=== PATIENT | female | born 1955 | race African-American/Black ===

== ENCOUNTER 2016-11-12 09:43 | Inpatient (IN) | payer MEDICARE, MEDICAID ==
[~2016-11-12] VITALS: Ht 170.2 cm; Wt 116.6 kg
[~2016-11-12 09:43] MED LIST: ASPI325T2 PO; BREO INH; CETI-101 PO; CLON0.5T4 PO; DEXL60CA3 PO; EDARBI PO; EZET10TA PO; FERR-63 PO; GABA-529 PO; GLIM1TAB2 PO; INSU100C11 SQ; METF10002 PO; MULT-1146 PO; OXYC10TA48 PO; PLAVIX PO; POTA10TA15 PO; SIMV20TA6 PO; SITA100T6 PO
[2016-11-12] MEDS ORDERED: PREDNISONE 20MG TABLET PO ONE (11:30)
[2016-11-12] MEDS ORDERED: IPRATROPIUM/ALBUTEROL 0.5-3(2.5)MG/3ML NEB HHN ONE (11:30)
[2016-11-12] MEDS ORDERED: ACETAMINOPHEN 325MG TABLET PO ONE (11:30)
[2016-11-12 12:13] LABS: BASOPHILS % 0.8 % (0.0-2.0); EOSINOPHILS % 0.6 % (0.0-5.0); HEMATOCRIT. 34.2 % (36.0-48.0); HEMOGLOBIN. 11.1 g/dL (12.0-16.0); LYMPHOCYTES % 21.5 % (20.0-50.0); MEAN CORPUSCULAR HEMOGLOBIN 29.3 pg (28.0-32.0); MEAN CORPUSCULAR HGB CONC 32.4 g/dL (31.0-37.0); MEAN CORPUSCULAR VOLUME 90.5 fL (81.0-99.0); MEAN PLATELET VOLUME 9.3 fl (7.4-10.4); MONOCYTES % 5.4 % (2.0-8.0); NEUTROPHILS % 71.7 % (40.0-76.0); PLATELET 360 x1000/uL (130-400); RED BLOOD CELL COUNT 3.78 mill/uL (4.2-5.4); RED CELL DISTRIBUTION WIDTH 14.8 % (11.6-14.6); WHITE BLOOD COUNT 11.6 x1000/uL (4.5-11.0)
[2016-11-12 12:19] LABS: PROTHROMBIN TIME 10.2 sec
[2016-11-12 12:24] LABS: ALANINE AMINOTRANSFERASE 15 IU/L (13-61); ALBUMIN 3.4 g/dL (3.4-5.0); ANION GAP 12; CALCIUM 9.2 mg/dL (8.5-10.1); CARBON DIOXIDE 26 mEq/L (21-32); CHLORIDE 107 mEq/L (98-107); INDEX HEMOLYSI 1 (1-3); INDEX ICTERIC 1 (1-4); INDEX LIPEMIC 1 (1-3); LIPASE 127 IU/L (73-393); UREA NITROGEN BLOOD 14 mg/dL (7-21); eGFR > 60 mL/min (>60)
[2016-11-12 12:27] LABS: TROPONIN I < 0.02 ng/mL (0.00-0.04)
[2016-11-12 12:29] LABS: LACTIC ACID 3.2 mmol/L (0.4-2.0)
[2016-11-12] MEDS ORDERED: SODIUM CHLORIDE 0.9% 1000ML BAG (SEPSIS BOLUS) IV ONE (12:45)
[2016-11-12] MEDS ORDERED: LEVOFLOXACIN 500MG PREMIX 100 ML IV ONE (13:00)
[2016-11-12] MEDS ORDERED: SODIUM CHLORIDE 0.9% 10ML VIAL ONE (14:17)
[2016-11-12] MEDS ORDERED: IOHEXOL-350 100 ML BOTTLE ONE (14:17)
[2016-11-12] MEDS ORDERED: CLONIDINE 0.1MG TABLET PO PRN (17:15)
[2016-11-12] MEDS ORDERED: AMLODIPINE 2.5MG TABLET PO NR (18:00)
[2016-11-12] MEDS: AMLODIPINE 2.5MG TABLET PO SCH (21:45)
[2016-11-12 21:55] VITALS: BP 134/71
[2016-11-12 22:00] VITALS: BP 134/71
[2016-11-13] VITALS: BP 118/73
[2016-11-13] MEDS ORDERED: DEXTROSE 50% WATER 50ML SYRINGE IV PRN (01:00)
[2016-11-13] MEDS ORDERED: CLONAZEPAM 0.5MG TABLET PO PRN (01:00)
[2016-11-13] MEDS ORDERED: ALBUTEROL (0.5%) 2.5MG/0.5ML NEB HHN ONE (01:00)
[2016-11-13] MEDS ORDERED: OXYBUTYNIN CHLORIDE 5MG TABLET PO NR (02:11)
[2016-11-13 04:00] VITALS: BP 116/63
[2016-11-13 07:12] LABS: CHLORIDE 107 mEq/L (98-107); INDEX HEMOLYSI 1 (1-3); INDEX ICTERIC 1 (1-4); INDEX LIPEMIC 1 (1-3)
[2016-11-13 07:23] LABS: ALANINE AMINOTRANSFERASE 14 IU/L (13-61); ALBUMIN 3.2 g/dL (3.4-5.0); ANION GAP 11; CALCIUM 9.2 mg/dL (8.5-10.1); CARBON DIOXIDE 27 mEq/L (21-32); CREATINE KINASE 54 IU/L (26-192); CREATINE KINASE MB FRACTION < 0.5 ng/mL (0.5-3.6); HDL CHOLESTEROL 78 mg/dL (40-59); LDL CHOLESTEROL 54 mg/dL (5-100); MAGNESIUM 1.8 mg/dL (1.8-2.4); NT PRO B-TYPE NATRIURETIC PEP 178 pg/mL (5-125); TRIGLYCERIDE 38 mg/dL (0-150); TROPONIN I < 0.02 ng/mL (0.00-0.04); UREA NITROGEN BLOOD 12 mg/dL (7-21); eGFR > 60 mL/min (>60)
[2016-11-13] MEDS: BLOOD SUGAR DIAGNOSTIC STRIP TEST SCH ×4 (07:50→21:46)
[2016-11-13] MEDS: GABAPENTIN 100MG CAPSULE PO SCH ×3 (07:50→21:46)
[2016-11-13] MEDS: INSULIN LISPRO 100 UNITS/ML SUBCUT SCH ×4 (07:50→21:00)
[2016-11-13 08:00] VITALS: BP 124/69
[2016-11-13] MEDS: OXYBUTYNIN CHLORIDE 5MG TABLET PO SCH (08:55)
[2016-11-13] MEDS: OMEPRAZOLE 20MG CAPSULE EXTENDED RELEASE PO SCH ×2 (08:55→21:46)
[2016-11-13] MEDS: AMLODIPINE 2.5MG TABLET PO SCH ×2 (08:56→21:45)
[2016-11-13] MEDS: FERROUS SULFATE 325MG TABLET PO SCH ×2 (08:56→17:57)
[2016-11-13] MEDS: LINAGLIPTIN 5MG TABLET PO SCH (08:56)
[2016-11-13] MEDS: CLOPIDOGREL 75MG TABLET PO SCH (08:56)
[2016-11-13] MEDS: LOSARTAN POTASSIUM 50 MG TABLET PO SCH (08:56)
[2016-11-13] MEDS: MULTIVITAMINS,THER W-MINERALS TABLET PO SCH (08:57)
[2016-11-13] MEDS: ASPIRIN 325MG EC TABLET PO SCH (08:57)
[2016-11-13] MEDS: CETIRIZINE 10MG TABLET PO SCH (08:57)
[2016-11-13] MEDS: METFORMIN HCL 500MG TABLET PO SCH ×2 (08:57→17:57)
[2016-11-13] MEDS: ENOXAPARIN 30MG/0.3ML SYR SUBCUT SCH ×2 (08:57→21:48)
[2016-11-13] MEDS ORDERED: ASPIRIN 325MG EC TABLET PO SCH (09:00)
[2016-11-13] MEDS: POTASSIUM CHLORIDE 10MEQ TABLET SR PO SCH (09:05)
[2016-11-13] MEDS: EZETIMIBE 10MG TABLET PO SCH (09:08)
[2016-11-13 12:00] VITALS: BP 110/60
[2016-11-13] MEDS: FLUTICASONE/VILANTEROL 200-25 BLST.W.DEV ORI SCH (12:59)
[2016-11-13] MEDS: UMECLIDINIUM BROMIDE 1 INH BLST.W.DEV IH SCH (12:59)
[2016-11-13 16:00] VITALS: BP 107/61
[2016-11-13] MEDS ORDERED: ALBUTEROL (0.083%) 2.5MG/3ML NEB HHN PRN (19:45)
[2016-11-13 20:00] VITALS: BP 135/78
[2016-11-13] MEDS ORDERED: INSULIN DETEMIR UD 100 UNITS/ML SYR SUBCUT SCH (21:00)
[2016-11-13] MEDS: INSULIN DETEMIR UD 100 UNITS/ML SYR SUBCUT SCH (21:44)
[2016-11-13] MEDS: ATORVASTATIN CALCIUM 20MG TABLET PO SCH (21:46)
[2016-11-13] MEDS: PREDNISONE 20MG TABLET PO SCH (21:56)
[2016-11-14] VITALS: BP 137/70
[2016-11-14 04:00] VITALS: BP 159/80
[2016-11-14] MEDS: GABAPENTIN 100MG CAPSULE PO SCH ×3 (06:18→22:00)
[2016-11-14] MEDS: OMEPRAZOLE 20MG CAPSULE EXTENDED RELEASE PO SCH ×2 (06:18→22:00)
[2016-11-14] MEDS: BLOOD SUGAR DIAGNOSTIC STRIP TEST SCH ×4 (06:22→21:00)
[2016-11-14 08:00] VITALS: BP 135/65
[2016-11-14] MEDS: METFORMIN HCL 500MG TABLET PO SCH ×2 (08:49→17:53)
[2016-11-14] MEDS: INSULIN LISPRO 100 UNITS/ML SUBCUT SCH ×4 (08:51→22:05)
[2016-11-14] MEDS: FLUTICASONE/VILANTEROL 200-25 BLST.W.DEV ORI SCH (08:53)
[2016-11-14] MEDS: UMECLIDINIUM BROMIDE 1 INH BLST.W.DEV IH SCH (08:55)
[2016-11-14] MEDS: LOSARTAN POTASSIUM 50 MG TABLET PO SCH (08:57)
[2016-11-14] MEDS: OXYBUTYNIN CHLORIDE 5MG TABLET PO SCH (08:58)
[2016-11-14] MEDS: POTASSIUM CHLORIDE 10MEQ TABLET SR PO SCH (08:59)
[2016-11-14] MEDS: AMLODIPINE 2.5MG TABLET PO SCH ×2 (08:59→22:00)
[2016-11-14] MEDS: ASPIRIN 325MG EC TABLET PO SCH (08:59)
[2016-11-14] MEDS: FERROUS SULFATE 325MG TABLET PO SCH ×2 (08:59→17:52)
[2016-11-14] MEDS: CLOPIDOGREL 75MG TABLET PO SCH (08:59)
[2016-11-14] MEDS: PREDNISONE 20MG TABLET PO SCH (09:00)
[2016-11-14] MEDS: EZETIMIBE 10MG TABLET PO SCH (09:00)
[2016-11-14] MEDS: MULTIVITAMINS,THER W-MINERALS TABLET PO SCH (09:00)
[2016-11-14] MEDS: CETIRIZINE 10MG TABLET PO SCH (09:01)
[2016-11-14] MEDS: LINAGLIPTIN 5MG TABLET PO SCH (09:01)
[2016-11-14] MEDS: ENOXAPARIN 30MG/0.3ML SYR SUBCUT SCH ×2 (09:02→22:00)
[2016-11-14 09:29] LABS: BASOPHILS % 0.4 % (0.0-2.0); HEMATOCRIT. 36.1 % (36.0-48.0); HEMOGLOBIN. 11.7 g/dL (12.0-16.0); LYMPHOCYTES % 9.2 % (20.0-50.0); MEAN CORPUSCULAR HEMOGLOBIN 29.2 pg (28.0-32.0); MEAN CORPUSCULAR HGB CONC 32.4 g/dL (31.0-37.0); MEAN PLATELET VOLUME 9.4 fl (7.4-10.4); MONOCYTES % 1.2 % (2.0-8.0); NEUTROPHILS % 89.2 % (40.0-76.0); PLATELET 388 x1000/uL (130-400)
[2016-11-14 09:39] LABS: ALANINE AMINOTRANSFERASE 14 IU/L (13-61); ALBUMIN 3.6 g/dL (3.4-5.0); ANION GAP 14; CALCIUM 9.9 mg/dL (8.5-10.1); CARBON DIOXIDE 26 mEq/L (21-32); CHLORIDE 102 mEq/L (98-107); INDEX HEMOLYSI 1 (1-3); INDEX ICTERIC 1 (1-4); INDEX LIPEMIC 1 (1-3); TROPONIN I < 0.02 ng/mL (0.00-0.04); UREA NITROGEN BLOOD 15 mg/dL (7-21); eGFR > 60 mL/min (>60)
[2016-11-14] MEDS: LEVOFLOXACIN 500MG TABLET PO SCH (10:56)
[2016-11-14 12:47] VITALS: BP 128/70
[2016-11-14] MEDS: LEVOTHYROXINE SODIUM 100MCG TABLET PO SCH (12:48)
[2016-11-14 16:28] VITALS: BP 118/75
[2016-11-14 20:00] VITALS: BP 122/77
[2016-11-14] MEDS: ATORVASTATIN CALCIUM 20MG TABLET PO SCH (22:00)
[2016-11-14] MEDS: INSULIN DETEMIR UD 100 UNITS/ML SYR SUBCUT SCH (22:06)
[2016-11-15] VITALS (7 sets, daily range): BP systolic 102–139; BP diastolic 56–85
[2016-11-15] MEDS: LEVOTHYROXINE SODIUM 100MCG TABLET PO SCH (06:34)
[2016-11-15] MEDS: OMEPRAZOLE 20MG CAPSULE EXTENDED RELEASE PO SCH (06:34)
[2016-11-15] MEDS: GABAPENTIN 100MG CAPSULE PO SCH ×2 (06:34→13:52)
[2016-11-15] MEDS: BLOOD SUGAR DIAGNOSTIC STRIP TEST SCH ×3 (06:36→16:41)
[2016-11-15] MEDS: METFORMIN HCL 500MG TABLET PO SCH ×2 (07:31→17:00)
[2016-11-15] MEDS: INSULIN LISPRO 100 UNITS/ML SUBCUT SCH ×3 (07:50→17:02)
[2016-11-15] MEDS: MULTIVITAMINS,THER W-MINERALS TABLET PO SCH (08:45)
[2016-11-15] MEDS: ASPIRIN 325MG EC TABLET PO SCH (08:45)
[2016-11-15] MEDS: LINAGLIPTIN 5MG TABLET PO SCH (08:45)
[2016-11-15] MEDS: EZETIMIBE 10MG TABLET PO SCH (08:46)
[2016-11-15] MEDS: POTASSIUM CHLORIDE 10MEQ TABLET SR PO SCH (08:46)
[2016-11-15] MEDS: CETIRIZINE 10MG TABLET PO SCH (08:47)
[2016-11-15] MEDS: OXYBUTYNIN CHLORIDE 5MG TABLET PO SCH (08:47)
[2016-11-15] MEDS: CLOPIDOGREL 75MG TABLET PO SCH (08:47)
[2016-11-15] MEDS: FERROUS SULFATE 325MG TABLET PO SCH ×2 (08:48→16:39)
[2016-11-15] MEDS: ENOXAPARIN 30MG/0.3ML SYR SUBCUT SCH (08:48)
[2016-11-15] MEDS: LOSARTAN POTASSIUM 50 MG TABLET PO SCH (08:48)
[2016-11-15] MEDS: AMLODIPINE 2.5MG TABLET PO SCH (08:49)
[2016-11-15] MEDS: UMECLIDINIUM BROMIDE 1 INH BLST.W.DEV IH SCH (08:54)
[2016-11-15] MEDS: FLUTICASONE/VILANTEROL 200-25 BLST.W.DEV ORI SCH (08:55)
[2016-11-15] MEDS: PREDNISONE 20MG TABLET PO SCH (08:58)
[2016-11-15] MEDS: LEVOFLOXACIN 500MG TABLET PO SCH (10:24)
[2016-11-16] MEDS ORDERED: ASPIRIN 81MG EC TABLET PO SCH (09:00)
== END 2016-11-15 20:40 | disposition home or self-care (01) | DRG 189 ==
LOC: ER 10:37 → 6EST 12:57
PROVIDERS: ADMIT Internal Medicine Pulmonary Disease; ATTEND Internal Medicine Pulmonary Disease
DX: J96.01 Acute respiratory failure with hypoxia (principal); J18.9 Pneumonia, unspecified organism; J45.901 Unspecified asthma with (acute) exacerbation; J44.0 Chronic obstructive pulmonary disease with (acute) lower respiratory infection; J98.11 Atelectasis; J44.1 Chronic obstructive pulmonary disease with (acute) exacerbation; Z68.41 Body mass index [BMI] 40.0-44.9, adult; I25.10 Atherosclerotic heart disease of native coronary artery without angina pectoris; E66.01 Morbid (severe) obesity due to excess calories; E78.5 Hyperlipidemia, unspecified; E89.0 Postprocedural hypothyroidism; I11.9 Hypertensive heart disease without heart failure; E78.00 Pure hypercholesterolemia, unspecified; E04.2 Nontoxic multinodular goiter; E11.65 Type 2 diabetes mellitus with hyperglycemia; Z95.5 Presence of coronary angioplasty implant and graft; Z87.891 Personal history of nicotine dependence; Z83.3 Family history of diabetes mellitus; Z82.49 Family history of ischemic heart disease and other diseases of the circulatory system; Z79.84 Long term (current) use of oral hypoglycemic drugs; Z79.899 Other long term (current) drug therapy; Z79.82 Long term (current) use of aspirin; Z90.49 Acquired absence of other specified parts of digestive tract; Z84.1 Family history of disorders of kidney and ureter; Z83.79 Family history of other diseases of the digestive system
CPT/HCPCS: 36415; 70490; 71010; 71275; 80053; 80061; 82550; 82553; 82962; 83605; 83690; 83735; 83880; 84484; 85025; 85379; 85610; 87040; 93005; 93970; 94640; 94664; 94760; 96365; 97162; 99285; A4216; J1650; J1815; J1956; J7030; J7512; J7611; J7620; Q9967

== ENCOUNTER 2017-03-03 08:50 | Emergency (ER) | payer MEDICARE, MEDICAID ==
[~2017-03-03] VITALS: Ht 170.2 cm; Wt 116.0 kg
[~2017-03-03 08:50] MED LIST changes: +ACET-2178 PO; +ASPI-986 PO; -ASPI325T2 PO; -EZET10TA PO; +SITA100T11 PO; -SITA100T6 PO; +ZET10 PO
[2017-03-03] MEDS ORDERED: METHYLPREDNISOLONE SOD SUCC 125 MG/2 ML VIAL IV STA (10:00)
[2017-03-03] MEDS ORDERED: IPRATROPIUM/ALBUTEROL 0.5-3(2.5)MG/3ML NEB HHN ONE (10:00)
[2017-03-03 10:42] LABS: EOSINOPHILS % 0.8 % (0.0-5.0); HEMATOCRIT. 34.3 % (36.0-48.0); HEMOGLOBIN. 11.3 g/dL (12.0-16.0); LYMPHOCYTES % 24.7 % (20.0-50.0); MEAN CORPUSCULAR HEMOGLOBIN 29.4 pg (28.0-32.0); MEAN CORPUSCULAR VOLUME 89.1 fL (81.0-99.0); MEAN PLATELET VOLUME 9.2 fl (7.4-10.4); MONOCYTES % 5.6 % (2.0-8.0); NEUTROPHILS % 67.9 % (40.0-76.0); PLATELET 360 x1000/uL (130-400); RED BLOOD CELL COUNT 3.85 mill/uL (4.2-5.4); RED CELL DISTRIBUTION WIDTH 15.2 % (11.6-14.6)
[2017-03-03 10:50] LABS: D-DIMER 0.6 mg/L FEU (<0.50); PARTIAL THROMBOPLASTIN TIME 21.3 sec (23.4-31.0); PROTHROMBIN TIME 10.4 sec (9.4-11.6)
[2017-03-03 10:53] LABS: CARBON DIOXIDE 23 mEq/L (21-32); CHLORIDE 107 mEq/L (98-107)
[2017-03-03 10:55] LABS: CLARITY URINE CLEAR (CLEAR); COLOR URINE YELLOW (YELLOW); GLUCOSE URINE NEGATIVE (NEGATIVE); KETONES URINE NEGATIVE (NEGATIVE); LEUKOCYTE ESTERASE URINE NEGATIVE (NEGATIVE); NITRITE URINE NEGATIVE (NEGATIVE); OCCULT BLOOD URINE NEGATIVE (NEGATIVE); PROTEIN URINE NEGATIVE (NEGATIVE); SPECIFIC GRAVITY URINE 1.009 (1.005-1.030); UROBILINOGEN URINE 0.2 E.U./dL (0.2-1.0)
[2017-03-03 10:57] LABS: TROPONIN I < 0.02 ng/mL (0.00-0.04)
[2017-03-03 13:40] VITALS: BP 138/70
== END 2017-03-03 13:57 | disposition home or self-care (01) ==
LOC: ER 10:47
DX: R06.02 Shortness of breath (principal); J44.9 Chronic obstructive pulmonary disease, unspecified; I25.10 Atherosclerotic heart disease of native coronary artery without angina pectoris; I10 Essential (primary) hypertension; I51.7 Cardiomegaly; J98.11 Atelectasis; J45.909 Unspecified asthma, uncomplicated; Z79.4 Long term (current) use of insulin; I25.2 Old myocardial infarction; Z79.82 Long term (current) use of aspirin; Z90.49 Acquired absence of other specified parts of digestive tract; E11.9 Type 2 diabetes mellitus without complications
CPT/HCPCS: 36415; 71010; 80053; 81001; 81003; 82010; 82150; 82962; 83605; 83690; 83880; 84484; 85025; 85379; 85610; 85730; 87040; 93005; 94640; 96360; 96374; 99285; J1815; J2930; J7030; 96372; J7620

== ENCOUNTER 2017-03-03 18:51 | Emergency (ER) | payer MEDICARE, MEDICAID ==
[~2017-03-03] VITALS: Ht 172.7 cm; Wt 114.0 kg
[2017-03-03] MEDS ORDERED: SODIUM CHLORIDE 0.9% 1,000 ML IV ONE (19:47)
[2017-03-03 20:22] LABS: HEMATOCRIT. 33.7 % (36.0-48.0); HEMOGLOBIN. 11.1 g/dL (12.0-16.0); MEAN CORPUSCULAR HEMOGLOBIN 29.4 pg (28.0-32.0); MEAN CORPUSCULAR VOLUME 89.5 fL (81.0-99.0); MEAN PLATELET VOLUME 9.2 fl (7.4-10.4); PLATELET 367 x1000/uL (130-400); RED BLOOD CELL COUNT 3.76 mill/uL (4.2-5.4); RED CELL DISTRIBUTION WIDTH 14.9 % (11.6-14.6)
[2017-03-03 20:35] LABS: AMYLASE 40 IU/L (25-115); BETA HYDROXYBUTYRATE 0.3 mMol/L (0.0-0.3); CARBON DIOXIDE 19 mEq/L (21-32); CHLORIDE 104 mEq/L (98-107); TROPONIN I < 0.02 ng/mL (0.00-0.04)
[2017-03-03] MEDS ORDERED: IPRATROPIUM/ALBUTEROL 0.5-3(2.5)MG/3ML NEB HHN ONE (21:30)
[2017-03-03 21:39] LABS: PLATELET ESTIMATE NORMAL
[2017-03-03 21:50] LABS: GLUCOSE URINE 3+ (NEGATIVE); KETONES URINE 2+ (NEGATIVE); LEUKOCYTE ESTERASE URINE NEGATIVE (NEGATIVE); NITRITE URINE NEGATIVE (NEGATIVE); OCCULT BLOOD URINE NEGATIVE (NEGATIVE); PH URINE 5.5 (4.5-8.0); PROTEIN URINE NEGATIVE (NEGATIVE); SPECIFIC GRAVITY URINE 1.026 (1.005-1.030)
[2017-03-03 21:53] LABS: CLARITY URINE HAZY (CLEAR); COLOR URINE YELLOW (YELLOW)
[2017-03-03] MEDS ORDERED: INSULIN REGULAR (HUMULIN R) 300UNITS/3ML SUBCUT ONE (22:00)
[2017-03-03 22:55] VITALS: BP 141/78
== END 2017-03-03 23:51 | disposition home or self-care (01) ==
LOC: ER 20:21
DX: E11.65 Type 2 diabetes mellitus with hyperglycemia (principal); R06.2 Wheezing; J44.9 Chronic obstructive pulmonary disease, unspecified; I10 Essential (primary) hypertension; I25.2 Old myocardial infarction; J45.909 Unspecified asthma, uncomplicated; E78.00 Pure hypercholesterolemia, unspecified; R00.0 Tachycardia, unspecified; D64.9 Anemia, unspecified; Z87.891 Personal history of nicotine dependence; Z79.82 Long term (current) use of aspirin; Z95.5 Presence of coronary angioplasty implant and graft; Z79.4 Long term (current) use of insulin
CPT/HCPCS: 36415; 80053; 81001; 82010; 82150; 82962; 83690; 84484; 85025; 93005; 94640; 96360; 96372; 99285; J1815; J7030; J7620

== ENCOUNTER → 2017-03-07 | Outpatient (CLI) | payer MEDICARE, MEDICAID ==
[~2017-03-07] MED LIST changes: +OXYB5TAB11 PO; +POLY250017 MC
== END | disposition home or self-care (01) ==
LOC: MAMMO 10:06
PROVIDERS: ATTEND Specialist
DX: Z12.31 Encounter for screening mammogram for malignant neoplasm of breast (principal)
CPT/HCPCS: G0202

== ENCOUNTER 2017-05-19 05:39 | Inpatient (IN) | payer MEDICARE, MEDICAID ==
[~2017-05-19] VITALS: Ht 170.2 cm; Wt 129.7 kg
[~2017-05-19 05:39] MED LIST changes: -OXYB5TAB11 PO; -POLY250017 MC
[2017-05-19] MEDS ORDERED: MORPHINE SULFATE 4 MG/ML CPJ (NOT FOR IM USE) IV STA (07:29)
[2017-05-19] MEDS ORDERED: ASPIRIN 81MG TABLET PO STA (07:29)
[2017-05-19] MEDS ORDERED: NITROGLYCERIN OINT 1GM/INCH UDPKT TD STA (07:29)
[2017-05-19] MEDS ORDERED: ONDANSETRON HCL 4MG/2ML VIAL IV STA (07:29)
[2017-05-19 07:55] LABS: BASOPHILS % 0.5 % (0.0-2.0); EOSINOPHILS % 0.7 % (0.0-5.0); HEMATOCRIT. 35.3 % (36.0-48.0); HEMOGLOBIN. 11.7 g/dL (12.0-16.0); LYMPHOCYTES % 20.8 % (20.0-50.0); MEAN CORPUSCULAR HEMOGLOBIN 30.1 pg (28.0-32.0); MEAN CORPUSCULAR VOLUME 90.7 fL (81.0-99.0); MONOCYTES % 5.2 % (2.0-8.0); NEUTROPHILS % 72.8 % (40.0-76.0); PLATELET 319 x1000/uL (130-400); RED CELL DISTRIBUTION WIDTH 15.1 % (11.6-14.6)
[2017-05-19 08:02] LABS: PARTIAL THROMBOPLASTIN TIME 25.9 sec (23.4-31.0); PROTHROMBIN TIME 10.6 sec (9.4-11.6)
[2017-05-19 08:13] LABS: CARBON DIOXIDE 26 mEq/L (21-32); CHLORIDE 106 mEq/L (98-107); TROPONIN I < 0.02 ng/mL (0.00-0.04)
[2017-05-19] MEDS ORDERED: IPRATROPIUM/ALBUTEROL 0.5-3(2.5)MG/3ML NEB HHN ONE (10:30)
[2017-05-19] MEDS ORDERED: METHYLPREDNISOLONE SOD SUCC 125 MG/2 ML VIAL IV ONE (10:30)
[2017-05-19] MEDS ORDERED: CEFTRIAXONE 1 G PREMIX 50 ML IV ONE (11:00)
[2017-05-19] MEDS ORDERED: AZITHROMYCIN 500 MG in DEXT 5% WATER 250 ML IV SCH (11:00)
[2017-05-19 13:40] VITALS: BP 110/65
[2017-05-19] MEDS ORDERED: OXYB5TAB11 PO (15:08)
[2017-05-19] MEDS ORDERED: POLY250017 MC (15:08)
[2017-05-19 16:00] VITALS: BP_SYST 114; BP_SYST 121; BP_DIAS 41; BP_DIAS 69
[2017-05-19] MEDS ORDERED: DEXTROSE 50% WATER 50ML SYRINGE IV PRN (16:45)
[2017-05-19] MEDS: BLOOD SUGAR DIAGNOSTIC STRIP TEST SCH ×2 (17:13→21:30)
[2017-05-19] MEDS ORDERED: ACETAMINOPHEN 325MG TABLET PO PRN (17:30)
[2017-05-19] MEDS: INSULIN LISPRO 100 UNITS/ML SUBCUT SCH ×2 (17:30→21:37)
[2017-05-19] MEDS: GABAPENTIN 100MG CAPSULE PO SCH (18:03)
[2017-05-19] MEDS: METFORMIN HCL 500MG TABLET PO SCH (18:16)
[2017-05-19 20:00] VITALS: BP 117/47
[2017-05-19] MEDS: IPRATROPIUM/ALBUTEROL 0.5-3(2.5)MG/3ML NEB HHN SCH (20:22)
[2017-05-19] MEDS: CLONAZEPAM 0.5MG TABLET PO SCH (21:35)
[2017-05-19] MEDS: METHYLPREDNISOLONE SOD SUCC 40 MG/ML VIAL IV SCH (21:35)
[2017-05-19] MEDS ORDERED: INSULIN DETEMIR UD 100 UNITS/ML SYR SUBCUT SCH (22:00)
[2017-05-20] VITALS: BP 115/65
[2017-05-20] MEDS: IPRATROPIUM/ALBUTEROL 0.5-3(2.5)MG/3ML NEB HHN SCH ×6 (00:15→21:00)
[2017-05-20 04:00] VITALS: BP 108/69
[2017-05-20] MEDS: METHYLPREDNISOLONE SOD SUCC 40 MG/ML VIAL IV SCH ×2 (05:25→17:41)
[2017-05-20] MEDS: BLOOD SUGAR DIAGNOSTIC STRIP TEST SCH ×4 (05:25→21:03)
[2017-05-20 07:35] LABS: BASOPHILS % 0.1 % (0.0-2.0); HEMATOCRIT. 32.7 % (36.0-48.0); HEMOGLOBIN. 10.8 g/dL (12.0-16.0); LYMPHOCYTES % 10.6 % (20.0-50.0); MEAN CORPUSCULAR HEMOGLOBIN 30.2 pg (28.0-32.0); MEAN CORPUSCULAR VOLUME 91.2 fL (81.0-99.0); MEAN PLATELET VOLUME 9.7 fl (7.4-10.4); MONOCYTES % 3.2 % (2.0-8.0); NEUTROPHILS % 86.1 % (40.0-76.0); PLATELET 303 x1000/uL (130-400); RED BLOOD CELL COUNT 3.59 mill/uL (4.2-5.4); RED CELL DISTRIBUTION WIDTH 14.7 % (11.6-14.6)
[2017-05-20] MEDS ORDERED: LEVOTHYROXINE SODIUM 100MCG TABLET PO SCH (07:40)
[2017-05-20 07:41] LABS: CARBON DIOXIDE 24 mEq/L (21-32); CHLORIDE 100 mEq/L (98-107); HDL CHOLESTEROL 68 mg/dL (40-59); LDL CHOLESTEROL 66 mg/dL (5-100); TOTAL IRON BINDING CAPACITY 296 ug/dL (250-450)
[2017-05-20 08:00] VITALS: BP 142/63
[2017-05-20] MEDS ORDERED: MEDICATION NOT ON FORMULARY EA (Sitagliptin Phosphate (Januvia) 100 MG) PO SCH (09:00)
[2017-05-20] MEDS ORDERED: BREO INH SCH (09:00)
[2017-05-20] MEDS ORDERED: MEDICATION NOT ON FORMULARY EA (Dexlansoprazole (Dexilant) 60 MG) PO SCH (09:00)
[2017-05-20] MEDS: METFORMIN HCL 500MG TABLET PO SCH ×2 (09:18→17:41)
[2017-05-20] MEDS: ASPIRIN 81MG TABLET PO SCH (09:18)
[2017-05-20] MEDS: GLIMEPIRIDE 1MG TABLET PO SCH (09:19)
[2017-05-20] MEDS: PANTOPRAZOLE 40MG DR TABLET PO SCH (09:19)
[2017-05-20] MEDS: GABAPENTIN 100MG CAPSULE PO SCH ×3 (09:19→17:44)
[2017-05-20] MEDS: LINAGLIPTIN 5MG TABLET PO SCH (09:20)
[2017-05-20] MEDS: OXYBUTYNIN CHLORIDE 5MG TABLET PO SCH (09:20)
[2017-05-20] MEDS: INSULIN LISPRO 100 UNITS/ML SUBCUT SCH ×4 (09:22→21:00)
[2017-05-20] MEDS: FLUTICASONE/VILANTEROL 200-25 BLST.W.DEV ORI SCH (09:24)
[2017-05-20] MEDS ORDERED: DEXTROSE 50% WATER 50ML SYRINGE IV PRN (10:45)
[2017-05-20 12:00] VITALS: BP 149/69
[2017-05-20] MEDS ORDERED: CEFTRIAXONE 1 G PREMIX 50 ML IV SCH (12:00)
[2017-05-20] MEDS ORDERED: BLOOD SUGAR DIAGNOSTIC STRIP TEST SCH (12:40)
[2017-05-20] MEDS ORDERED: AZITHROMYCIN 500 MG in DEXT 5% WATER 250 ML IV SCH (13:00)
[2017-05-20] MEDS: POLYETHYLENE GLYCOL 3350 (17GM) 1 DOSE PACK PO SCH (14:06)
[2017-05-20] MEDS: TRAMADOL 50MG TABLET PO PRN ×2 (14:07→21:07)
[2017-05-20] MEDS: ENOXAPARIN 40MG/0.4ML SYR SUBCUT SCH ×2 (14:09→21:06)
[2017-05-20 16:00] VITALS: BP 118/67
[2017-05-20 20:00] VITALS: BP 110/43
[2017-05-20] MEDS: CLONAZEPAM 0.5MG TABLET PO SCH (21:07)
[2017-05-20] MEDS ORDERED: INSULIN DETEMIR UD 100 UNITS/ML SYR SUBCUT SCH (22:00)
[2017-05-21] VITALS: BP 106/45
[2017-05-21] MEDS: IPRATROPIUM/ALBUTEROL 0.5-3(2.5)MG/3ML NEB HHN SCH ×3 (00:49→08:08)
[2017-05-21 04:00] VITALS: BP 130/61
[2017-05-21] MEDS: BLOOD SUGAR DIAGNOSTIC STRIP TEST SCH (05:28)
[2017-05-21] MEDS: METHYLPREDNISOLONE SOD SUCC 40 MG/ML VIAL IV SCH (05:35)
[2017-05-21 07:17] LABS: BASOPHILS % 0.3 % (0.0-2.0); HEMATOCRIT. 35.9 % (36.0-48.0); HEMOGLOBIN. 11.7 g/dL (12.0-16.0); LYMPHOCYTES % 19.2 % (20.0-50.0); MEAN CORPUSCULAR HEMOGLOBIN 29.7 pg (28.0-32.0); MEAN PLATELET VOLUME 9.9 fl (7.4-10.4); MONOCYTES % 4.1 % (2.0-8.0); NEUTROPHILS % 76.4 % (40.0-76.0); PLATELET 345 x1000/uL (130-400); RED BLOOD CELL COUNT 3.94 mill/uL (4.2-5.4); RED CELL DISTRIBUTION WIDTH 14.7 % (11.6-14.6)
[2017-05-21] MEDS ORDERED: LEVOTHYROXINE SODIUM 75MCG TABLET PO SCH (07:40)
[2017-05-21 08:00] VITALS: BP 143/73
[2017-05-21] MEDS: METFORMIN HCL 500MG TABLET PO SCH (08:13)
[2017-05-21] MEDS: OXYBUTYNIN CHLORIDE 5MG TABLET PO SCH (08:13)
[2017-05-21] MEDS: PANTOPRAZOLE 40MG DR TABLET PO SCH (08:13)
[2017-05-21] MEDS: LINAGLIPTIN 5MG TABLET PO SCH (08:13)
[2017-05-21] MEDS: ASPIRIN 81MG TABLET PO SCH (08:13)
[2017-05-21] MEDS: GLIMEPIRIDE 1MG TABLET PO SCH (08:13)
[2017-05-21] MEDS: GABAPENTIN 100MG CAPSULE PO SCH (08:13)
[2017-05-21] MEDS: ENOXAPARIN 40MG/0.4ML SYR SUBCUT SCH (08:14)
[2017-05-21] MEDS: INSULIN LISPRO 100 UNITS/ML SUBCUT SCH (08:14)
[2017-05-21] MEDS: POLYETHYLENE GLYCOL 3350 (17GM) 1 DOSE PACK PO SCH (08:14)
[2017-05-21] MEDS: FLUTICASONE/VILANTEROL 200-25 BLST.W.DEV ORI SCH (08:16)
[2017-05-21 08:17] LABS: CARBON DIOXIDE 24 mEq/L (21-32); CHLORIDE 99 mEq/L (98-107)
[2017-05-21] MEDS ORDERED: PREDNISONE 20MG TABLET PO SCH (09:00)
[2017-05-21] MEDS ORDERED: AZITHROMYCIN 250 MG TABLET PO SCH (09:00)
[2017-05-21 10:46] VITALS: BP 143/73
== END 2017-05-21 11:20 | disposition home or self-care (01) | DRG 202 ==
LOC: ER 05:39 → 7WST 07:35 → EDBEDREQ 10:55 → ENRESERV 11:46
PROVIDERS: ADMIT Internal Medicine Pulmonary Disease; ATTEND Internal Medicine Pulmonary Disease
DX: J45.901 Unspecified asthma with (acute) exacerbation (principal); J44.1 Chronic obstructive pulmonary disease with (acute) exacerbation; E11.40 Type 2 diabetes mellitus with diabetic neuropathy, unspecified; E88.81 Metabolic syndrome and other insulin resistance; Z68.41 Body mass index [BMI] 40.0-44.9, adult; E66.01 Morbid (severe) obesity due to excess calories; E11.65 Type 2 diabetes mellitus with hyperglycemia; K21.9 Gastro-esophageal reflux disease without esophagitis; I25.10 Atherosclerotic heart disease of native coronary artery without angina pectoris; E89.0 Postprocedural hypothyroidism; E78.5 Hyperlipidemia, unspecified; G89.29 Other chronic pain; M54.5 Low back pain; E78.00 Pure hypercholesterolemia, unspecified; I10 Essential (primary) hypertension; T38.0X5A Adverse effect of glucocorticoids and synthetic analogues, initial encounter; Z90.49 Acquired absence of other specified parts of digestive tract; Z90.710 Acquired absence of both cervix and uterus; Z95.5 Presence of coronary angioplasty implant and graft; Z79.4 Long term (current) use of insulin; Z79.02 Long term (current) use of antithrombotics/antiplatelets; Z79.82 Long term (current) use of aspirin; Z79.899 Other long term (current) drug therapy; Z87.891 Personal history of nicotine dependence; Z82.49 Family history of ischemic heart disease and other diseases of the circulatory system; Z83.3 Family history of diabetes mellitus
CPT/HCPCS: 36415; 71010; 80048; 80053; 80061; 82962; 83036; 83540; 83550; 83605; 83880; 84443; 84484; 85025; 85610; 85730; 87040; 93005; 93970; 94640; 94664; 96374; 96375; 99285; J0456; J0696; J1650; J1815; J2270; J2405; J2920; J2930; J7060; J7512; J7620

== ENCOUNTER 2017-07-12 06:00 | Day surgery (SDC) | payer MEDICARE, MEDICAID ==
[~2017-07-12] VITALS: Ht 170.2 cm; Wt 114.8 kg
[2017-07-12] MEDS ORDERED: NITROGLYCERIN 50MCG/ML 10ML VIAL (CATH LAB) IV ONE (07:31)
[2017-07-12] MEDS ORDERED: HEPARIN SODIUM 1,000 UNIT/1ML VIAL IV ONE (07:31)
[2017-07-12] MEDS ORDERED: NICARDIPINE 100MCG/ML 10ML VIAL (CATH LAB) IV ONE (07:31)
[2017-07-12 13:12] LABS: BASOPHILS % 0.7 % (0.0-2.0); EOSINOPHILS % 0.7 % (0.0-5.0); HEMATOCRIT. 34.3 % (36.0-48.0); LYMPHOCYTES % 28.7 % (20.0-50.0); MEAN CORPUSCULAR HEMOGLOBIN 29.4 pg (28.0-32.0); MEAN CORPUSCULAR VOLUME 91.9 fL (81.0-99.0); MEAN PLATELET VOLUME 9.1 fl (7.4-10.4); MONOCYTES % 6.3 % (2.0-8.0); NEUTROPHILS % 63.6 % (40.0-76.0); PLATELET 374 x1000/uL (130-400); RED BLOOD CELL COUNT 3.73 mill/uL (4.2-5.4); RED CELL DISTRIBUTION WIDTH 15.2 % (11.6-14.6)
[2017-07-12] MEDS ORDERED: ASPIRIN/SOD BICARB/CITRIC ACID 324MG TAB EFF ONE (13:15)
[2017-07-12] MEDS ORDERED: IODIXANOL 320MG/ML 100 ML BOTTLE IV ONE (13:20)
[2017-07-12] MEDS ORDERED: LIDOCAINE HCL 1% 20ML VIAL (Pyxis) INJ ONE (13:21)
[2017-07-12] MEDS ORDERED: FENTANYL CITRATE/PF 50MCG/ML 2ML VIAL ONE (13:24)
[2017-07-12] MEDS ORDERED: MIDAZOLAM HCL 2 MG/2 ML VIAL ONE ×2 (13:24→14:14)
[2017-07-12] MEDS ORDERED: MORPHINE SULFATE 2 MG/ML CPJ (NOT FOR IM USE) IV PRN (15:15)
[2017-07-12] MEDS ORDERED: ACETAMINOPHEN 325MG TABLET PO PRN (15:15)
[2017-07-12] MEDS ORDERED: ATROPINE SULFATE 1MG/10ML SYR IV PRN (15:15)
[2017-07-12] MEDS ORDERED: ONDANSETRON HCL 4MG/2ML VIAL IV PRN (15:15)
== END 2017-07-12 18:00 | disposition home or self-care (01) ==
LOC: CCL 06:00
PROVIDERS: ATTEND Specialist
DX: I25.10 Atherosclerotic heart disease of native coronary artery without angina pectoris (principal); I10 Essential (primary) hypertension; E78.5 Hyperlipidemia, unspecified; E11.9 Type 2 diabetes mellitus without complications; Z98.890 Other specified postprocedural states
CPT/HCPCS: 36415; 82962; 85025; 93458; 99152; 99153; C1769; C1887; C1893; C1894; J1644; J2250; J3010; J3490; Q9967

== ENCOUNTER 2017-10-05 09:35 | Observation (INO) | payer MEDICARE, MEDICAID ==
[~2017-10-05] VITALS: Ht 170.2 cm; Wt 115.2 kg
[2017-10-05] MEDS ORDERED: IPRATROPIUM/ALBUTEROL 0.5-3(2.5)MG/3ML NEB HHN ONE (10:45)
[2017-10-05 10:46] LABS: CLARITY URINE CLEAR (CLEAR); COLOR URINE YELLOW (YELLOW); KETONES URINE NEGATIVE (NEGATIVE); LEUKOCYTE ESTERASE URINE NEGATIVE (NEGATIVE); NITRITE URINE NEGATIVE (NEGATIVE); OCCULT BLOOD URINE NEGATIVE (NEGATIVE); PROTEIN URINE NEGATIVE (NEGATIVE); SPECIFIC GRAVITY URINE 1.006 (1.005-1.030); UROBILINOGEN URINE 0.2 E.U./dL (0.2-1.0)
[2017-10-05 11:04] LABS: BASOPHILS % 0.5 % (0.0-2.0); EOSINOPHILS % 0.4 % (0.0-5.0); HEMATOCRIT. 33.3 % (36.0-48.0); HEMOGLOBIN. 11.1 g/dL (12.0-16.0); LYMPHOCYTES % 22.7 % (20.0-50.0); MEAN CORPUSCULAR HEMOGLOBIN 30.3 pg (28.0-32.0); MEAN CORPUSCULAR VOLUME 91.2 fL (81.0-99.0); MEAN PLATELET VOLUME 9.3 fl (7.4-10.4); MONOCYTES % 6.5 % (2.0-8.0); NEUTROPHILS % 69.9 % (40.0-76.0); PLATELET 362 x1000/uL (130-400); RED BLOOD CELL COUNT 3.65 mill/uL (4.2-5.4); RED CELL DISTRIBUTION WIDTH 14.8 % (11.6-14.6)
[2017-10-05 11:12] LABS: PROTHROMBIN TIME 10.5 sec (9.4-11.6)
[2017-10-05 11:15] LABS: CHLORIDE 107 mEq/L (98-107)
[2017-10-05] MEDS ORDERED: MORPHINE SULFATE 4 MG/ML CPJ (NOT FOR IM USE) IV ONE (11:45)
[2017-10-05] MEDS ORDERED: NITROGLYCERIN 0.4MG TABLET SL SL ONE (11:45)
[2017-10-05] MEDS ORDERED: ASPIRIN 81MG TABLET PO NR (17:00)
[2017-10-05] MEDS ORDERED: DEXTROSE 50% WATER 50ML SYRINGE IV PRN (17:00)
[2017-10-05 20:00] VITALS: BP 147/71
[2017-10-05] MEDS: BLOOD SUGAR DIAGNOSTIC STRIP TEST SCH (20:46)
[2017-10-05] MEDS: INSULIN LISPRO 100 UNITS/ML SUBCUT SCH (20:55)
[2017-10-05] MEDS: METFORMIN HCL 500MG TABLET PO SCH (20:57)
[2017-10-05 22:02] VITALS: BP 147/71
[2017-10-05] MEDS ORDERED: DIPH25CA83 PO (22:16)
[2017-10-05] MEDS ORDERED: ZET10 PO (22:16)
[2017-10-05] MEDS ORDERED: CETI10TA10 PO (22:16)
[2017-10-05] MEDS ORDERED: OMEP40CA34 PO (22:16)
[2017-10-05] MEDS ORDERED: CLOP75TA33 PO (22:16)
[2017-10-05] MEDS ORDERED: METF10002 PO (22:16)
[2017-10-05] MEDS ORDERED: FERR325T6 PO (22:16)
[2017-10-05] MEDS ORDERED: FLUT1BLS IH (22:16)
[2017-10-05] MEDS ORDERED: GABA-529 PO (22:16)
[2017-10-05] MEDS ORDERED: SIMV20TA6 PO (22:16)
[2017-10-05] MEDS ORDERED: MULT-1146 PO (22:16)
[2017-10-05] MEDS ORDERED: TIOT18CA3 IH (22:16)
[2017-10-05] MEDS ORDERED: ASPI-1159 PO (22:16)
[2017-10-05] MEDS ORDERED: INSU100I28 SQ (22:16)
[2017-10-05] MEDS ORDERED: ASCO500C18 PO (22:16)
[2017-10-05] MEDS ORDERED: DULO30CA2 PO (22:16)
[2017-10-05] MEDS ORDERED: SAXA5TAB PO (22:16)
[2017-10-05] MEDS ORDERED: VALS160T27 PO (22:16)
[2017-10-05] MEDS ORDERED: CLON0.5T4 PO ×2 (22:16)
[2017-10-05] MEDS ORDERED: POLY17PO3 PO (22:16)
[2017-10-05] MEDS ORDERED: POTA10CA42 PO (22:16)
[2017-10-05] MEDS ORDERED: NITR0.4T49 SL (22:16)
[2017-10-05] MEDS ORDERED: ALBUTEROL (0.083%) 2.5MG/3ML NEB HHN PRN (23:15)
[2017-10-05 23:44] VITALS: BP 138/61
[2017-10-05] MEDS: MORPHINE SULFATE 4 MG/ML CPJ (NOT FOR IM USE) IV PRN (23:45)
[2017-10-05] MEDS: NITROGLYCERIN OINT 1GM/INCH UDPKT TD SCH (23:45)
[2017-10-05] MEDS: POLYETHYLENE GLYCOL 3350 (17GM) 1 DOSE PACK PO SCH (23:47)
[2017-10-06 04:00] VITALS: BP 108/49
[2017-10-06] MEDS: NITROGLYCERIN OINT 1GM/INCH UDPKT TD SCH ×3 (04:00→12:00)
[2017-10-06] MEDS: BLOOD SUGAR DIAGNOSTIC STRIP TEST SCH (06:29)
[2017-10-06 06:35] LABS: BASOPHILS % 0.7 % (0.0-2.0); EOSINOPHILS % 1.2 % (0.0-5.0); HEMOGLOBIN. 10.3 g/dL (12.0-16.0); LYMPHOCYTES % 26.7 % (20.0-50.0); MEAN CORPUSCULAR HEMOGLOBIN 30.5 pg (28.0-32.0); MEAN CORPUSCULAR VOLUME 91.5 fL (81.0-99.0); MEAN PLATELET VOLUME 9.2 fl (7.4-10.4); MONOCYTES % 6.6 % (2.0-8.0); NEUTROPHILS % 64.8 % (40.0-76.0); PLATELET 362 x1000/uL (130-400); RED BLOOD CELL COUNT 3.39 mill/uL (4.2-5.4)
[2017-10-06] MEDS ORDERED: LEVOTHYROXINE SODIUM 100MCG TABLET PO SCH (07:20)
[2017-10-06] MEDS ORDERED: GLIPIZIDE 5MG TABLET PO SCH (07:20)
[2017-10-06 07:38] LABS: CHLORIDE 105 mEq/L (98-107)
[2017-10-06 07:44] LABS: HDL CHOLESTEROL 58 mg/dL (40-59); LDL CHOLESTEROL 61 mg/dL (5-100)
[2017-10-06] MEDS: METFORMIN HCL 500MG TABLET PO SCH (07:50)
[2017-10-06] MEDS: INSULIN LISPRO 100 UNITS/ML SUBCUT SCH (07:50)
[2017-10-06 08:00] VITALS: BP 113/59
[2017-10-06] MEDS: POLYETHYLENE GLYCOL 3350 (17GM) 1 DOSE PACK PO SCH (08:32)
[2017-10-06] MEDS ORDERED: LOSARTAN POTASSIUM 50 MG TABLET PO SCH (09:00)
[2017-10-06] MEDS ORDERED: CLOPIDOGREL 75MG TABLET PO SCH (09:00)
[2017-10-06] MEDS ORDERED: FLUTICASONE/VILANTEROL 200-25 BLST.W.DEV ORI SCH (09:00)
[2017-10-06] MEDS ORDERED: UMECLIDINIUM BROMIDE 1 INH BLST.W.DEV IH SCH (09:00)
[2017-10-06] MEDS: MORPHINE SULFATE 4 MG/ML CPJ (NOT FOR IM USE) IV PRN (11:16)
[2017-10-06 12:00] VITALS: BP 116/61
[2017-10-06 12:57] VITALS: BP 116/62
[2017-10-06] MEDS ORDERED: MAGNESIUM 1 G PREMIX 100 ML IV SCH (13:00)
== END 2017-10-06 13:35 | disposition home or self-care (01) ==
LOC: ER 10:00 → 6WST 12:20 → INTOOBSV 12:20 → ENRESERV 19:28 → 6WST 20:39
PROVIDERS: ADMIT Internal Medicine Pulmonary Disease; ATTEND Internal Medicine Pulmonary Disease
DX: R07.89 Other chest pain (principal); I25.10 Atherosclerotic heart disease of native coronary artery without angina pectoris; J44.9 Chronic obstructive pulmonary disease, unspecified; E11.9 Type 2 diabetes mellitus without complications; K21.9 Gastro-esophageal reflux disease without esophagitis; E03.9 Hypothyroidism, unspecified; E04.2 Nontoxic multinodular goiter; I10 Essential (primary) hypertension; G89.29 Other chronic pain; E78.5 Hyperlipidemia, unspecified; D64.9 Anemia, unspecified; I25.5 Ischemic cardiomyopathy; E78.00 Pure hypercholesterolemia, unspecified; Z95.5 Presence of coronary angioplasty implant and graft; Z87.891 Personal history of nicotine dependence
CPT/HCPCS: 36415; 71045; 80048; 80053; 80061; 81003; 82962; 83036; 83735; 83880; 84484; 85025; 85610; 93005; 93306; 94640; 96374; 96376; 99285; G0378; J2270; J3475; J7611; J7620

== ENCOUNTER 2017-11-01 13:28 | Emergency (ER) | payer MEDICARE, MEDICAID ==
[~2017-11-01] VITALS: Ht 165.1 cm; Wt 76.0 kg
[~2017-11-01 13:28] MED LIST changes: -ACET-2178 PO; +ASCO500C18 PO; +ASPI-1159 PO; -ASPI-986 PO; -BREO INH; -CETI-101 PO; +CETI10TA10 PO; +CLOP75TA33 PO; -DEXL60CA3 PO; +DIPH25CA83 PO; +DULO30CA2 PO; -EDARBI PO; -FERR-63 PO; +FERR325T6 PO; +FLUT1BLS IH; -GLIM1TAB2 PO; -INSU100C11 SQ; +INSU100I28 SQ; +NITR0.4T49 SL; +OMEP40CA34 PO; -OXYC10TA48 PO; -PLAVIX PO; +POLY17PO3 PO; +POTA10CA42 PO; -POTA10TA15 PO; +SAXA5TAB PO; -SITA100T11 PO; +TIOT18CA3 IH; +VALS160T27 PO
[2017-11-01 15:51] VITALS: BP 115/99
== END 2017-11-01 15:52 | disposition home or self-care (01) ==
LOC: ER 13:58
DX: E07.9 Disorder of thyroid, unspecified (principal); J45.909 Unspecified asthma, uncomplicated; I10 Essential (primary) hypertension; E78.00 Pure hypercholesterolemia, unspecified; E11.9 Type 2 diabetes mellitus without complications; Z79.4 Long term (current) use of insulin; Z79.82 Long term (current) use of aspirin; Z95.820 Peripheral vascular angioplasty status with implants and grafts; Z88.8 Allergy status to other drugs, medicaments and biological substances
CPT/HCPCS: 70490; 99284

== ENCOUNTER → 2018-03-07 | Outpatient (CLI) | payer MEDICARE, MEDICAID ==
[~2018-03-07] MED LIST changes: +ALBU6.7H IH; +CLON0.5T12 PO; -CLON0.5T4 PO; -DIPH25CA83 PO; -METF10002 PO; +METF10004 PO; -OMEP40CA34 PO; -VALS160T27 PO
== END | disposition home or self-care (01) ==
LOC: MAMMO 02-27 07:31
PROVIDERS: ATTEND Internal Medicine Pulmonary Disease
DX: Z12.31 Encounter for screening mammogram for malignant neoplasm of breast (principal); R92.1 Mammographic calcification found on diagnostic imaging of breast
CPT/HCPCS: 77067

== ENCOUNTER 2018-05-09 08:46 | Emergency (ER) | payer MEDICARE, MEDICAID ==
[~2018-05-09] VITALS: Ht 170.2 cm; Wt 114.0 kg
[~2018-05-09 08:46] MED LIST changes: +METF-416 PO; -METF10004 PO
[2018-05-09 09:54] LABS: CLARITY URINE CLOUDY (CLEAR); COLOR URINE YELLOW (YELLOW); KETONES URINE NEGATIVE (NEGATIVE); LEUKOCYTE ESTERASE URINE 3+ (NEGATIVE); NITRITE URINE NEGATIVE (NEGATIVE); OCCULT BLOOD URINE 1+ (NEGATIVE); PROTEIN URINE NEGATIVE (NEGATIVE); SPECIFIC GRAVITY URINE 1.004 (1.005-1.030); UROBILINOGEN URINE 0.2 E.U./dL (0.2-1.0)
[2018-05-09 10:30] LABS: BASOPHILS % 0.6 % (0.0-2.0); EOSINOPHILS % 0.8 % (0.0-5.0); HEMATOCRIT. 33.7 % (36.0-48.0); HEMOGLOBIN. 11.6 g/dL (12.0-16.0); LYMPHOCYTES % 17.4 % (20.0-50.0); MEAN CORPUSCULAR HEMOGLOBIN 31.7 pg (28.0-32.0); MEAN CORPUSCULAR VOLUME 92.4 fL (81.0-99.0); MEAN PLATELET VOLUME 10.2 fl (7.4-10.4); MONOCYTES % 5.4 % (2.0-8.0); NEUTROPHILS % 75.8 % (40.0-76.0); PLATELET 407 x1000/uL (130-400); RED BLOOD CELL COUNT 3.65 mill/uL (4.2-5.4); RED CELL DISTRIBUTION WIDTH 15.2 % (11.6-14.6)
[2018-05-09 10:41] LABS: CHLORIDE 102 mEq/L (98-107)
[2018-05-09] MEDS ORDERED: KETOROLAC 30MG/ML VIAL IV ONE (11:45)
[2018-05-09 14:32] VITALS: BP 135/77
== END 2018-05-09 14:35 | disposition home or self-care (01) ==
LOC: ER 08:46
DX: N39.0 Urinary tract infection, site not specified (principal); I10 Essential (primary) hypertension; E11.9 Type 2 diabetes mellitus without complications; J45.909 Unspecified asthma, uncomplicated; Z98.890 Other specified postprocedural states; Z79.899 Other long term (current) drug therapy; Z79.82 Long term (current) use of aspirin; Z91.048 Other nonmedicinal substance allergy status
CPT/HCPCS: 36415; 80053; 81003; 82962; 85025; 87077; 87086; 87186; 96374; 99284; J1885

== ENCOUNTER 2018-09-13 08:29 | Emergency (ER) | payer MEDICARE, MEDICAID ==
[~2018-09-13] VITALS: Ht 170.2 cm; Wt 115.0 kg
[2018-09-13] MEDS ORDERED: MORPHINE SULFATE 4 MG/ML CPJ (NOT FOR IM USE) IV STA (10:11)
[2018-09-13] MEDS ORDERED: ONDANSETRON HCL 4MG/2ML INJ IV STA (10:11)
[2018-09-13] MEDS ORDERED: SODIUM CHLORIDE 0.9% 1,000 ML IV ONE (10:11)
[2018-09-13 10:39] LABS: CLARITY URINE CLEAR (CLEAR); COLOR URINE YELLOW (YELLOW); KETONES URINE NEGATIVE (NEGATIVE); LEUKOCYTE ESTERASE URINE NEGATIVE (NEGATIVE); NITRITE URINE NEGATIVE (NEGATIVE); OCCULT BLOOD URINE NEGATIVE (NEGATIVE); PROTEIN URINE NEGATIVE (NEGATIVE); SPECIFIC GRAVITY URINE 1.016 (1.005-1.030)
[2018-09-13 11:19] LABS: BASOPHILS % 0.6 % (0.0-2.0); EOSINOPHILS % 0.4 % (0.0-5.0); HEMATOCRIT. 33.7 % (36.0-48.0); HEMOGLOBIN. 11.1 g/dL (12.0-16.0); LYMPHOCYTES % 21.6 % (20.0-50.0); MEAN CORPUSCULAR HEMOGLOBIN 30.2 pg (28.0-32.0); MEAN CORPUSCULAR VOLUME 91.6 fL (81.0-99.0); MEAN PLATELET VOLUME 8.6 fl (7.4-10.4); MONOCYTES % 6.1 % (2.0-8.0); NEUTROPHILS % 71.3 % (40.0-76.0); PLATELET 365 x1000/uL (130-400); RED BLOOD CELL COUNT 3.68 mill/uL (4.2-5.4); RED CELL DISTRIBUTION WIDTH 15.2 % (11.6-14.6)
[2018-09-13 11:25] LABS: CHLORIDE 106 mEq/L (98-107)
[2018-09-13 11:26] LABS: PROTHROMBIN TIME 10.1 sec (9.1-11.1)
[2018-09-13 13:20] VITALS: BP 126/56
== END 2018-09-13 13:26 | disposition home or self-care (01) ==
LOC: ER 08:29
DX: M54.40 Lumbago with sciatica, unspecified side (principal); I11.9 Hypertensive heart disease without heart failure; E11.9 Type 2 diabetes mellitus without complications; J45.909 Unspecified asthma, uncomplicated; E66.9 Obesity, unspecified; Z68.39 Body mass index [BMI] 39.0-39.9, adult; Z79.82 Long term (current) use of aspirin; Z79.4 Long term (current) use of insulin
CPT/HCPCS: 36415; 74176; 80053; 81003; 83690; 85025; 85610; 96374; 96375; 99284; J2270; J2405; J7030

== ENCOUNTER 2018-09-15 09:11 | Emergency (ER) | payer MEDICARE, MEDICAID ==
[~2018-09-15] VITALS: Ht 157.5 cm; Wt 98.0 kg
[2018-09-15] MEDS ORDERED: KETOROLAC 60MG/2ML VIAL IM ONE (11:15)
[2018-09-15 11:18] VITALS: BP 141/84
== END 2018-09-15 11:19 | disposition home or self-care (01) ==
LOC: ER 09:18
DX: M54.32 Sciatica, left side (principal); E11.9 Type 2 diabetes mellitus without complications; I10 Essential (primary) hypertension; J45.909 Unspecified asthma, uncomplicated; Z79.84 Long term (current) use of oral hypoglycemic drugs; Z79.82 Long term (current) use of aspirin; Z91.09 Other allergy status, other than to drugs and biological substances
CPT/HCPCS: 96372; 99283; J1885

== ENCOUNTER → 2019-03-13 | Outpatient (CLI) | payer MEDICARE, MEDICAID ==
[~2019-03-13] MED LIST changes: -ASPI-1159 PO; +ASPI-1393 PO; +EZET10TA13 PO; -ZET10 PO
== END | disposition home or self-care (01) ==
LOC: MAMMO 07:37
PROVIDERS: ATTEND Internal Medicine Pulmonary Disease
DX: Z12.31 Encounter for screening mammogram for malignant neoplasm of breast (principal)
CPT/HCPCS: 77067

== ENCOUNTER 2019-07-12 00:56 | Emergency (ER) | payer MEDICARE, MEDICAID ==
[~2019-07-12] VITALS: Ht 170.2 cm; Wt 110.0 kg
[~2019-07-12 00:56] MED LIST changes: -ALBU6.7H IH; +ALBU6.7H11 IH; -ASPI-1393 PO; +ASPI-1497 PO; -CLON0.5T12 PO; +CLON0.5T4 PO; +SIMV-43 PO; -SIMV20TA6 PO
[2019-07-12 01:14] VITALS: BP 179/85
== END 2019-07-12 05:25 | disposition left against medical advice (07) ==
LOC: ER 00:56
DX: R06.02 Shortness of breath (principal); Z53.21 Procedure and treatment not carried out due to patient leaving prior to being seen by health care provider

== ENCOUNTER → 2020-04-19 | Outpatient (CLI) | payer MEDICARE, MEDICAID | END | disposition home or self-care (01) | LOC: LAB 07:58 | PROVIDERS: ATTEND Internal Medicine Pulmonary Disease | DX: Z20.828 Contact with and (suspected) exposure to other viral communicable diseases (principal) | CPT/HCPCS: C9803; U0003 ==

== ENCOUNTER → 2020-04-21 | Outpatient (CLI) | payer MEDICARE, MEDICAID | END | disposition home or self-care (01) | LOC: MAMMO 07:39 | PROVIDERS: ATTEND Internal Medicine Pulmonary Disease | DX: Z12.31 Encounter for screening mammogram for malignant neoplasm of breast (principal) | CPT/HCPCS: 77067 ==

== ENCOUNTER → 2020-08-15 | Outpatient (CLI) | payer MEDICARE, MEDICAID ==
[~2020-08-15] MED LIST changes: +CALC-1139 PO; +DEXL60CA3 PO; +DULA0.75 SQ; +IRBE1TAB43 MT; +LEVO25TA7 PO; +P20 PO
== END | disposition home or self-care (01) ==
LOC: LAB 09:15
PROVIDERS: ATTEND Specialist
DX: Z01.812 Encounter for preprocedural laboratory examination (principal); R05 Cough; Z20.822 Contact with and (suspected) exposure to COVID-19
CPT/HCPCS: 87426

== ENCOUNTER 2020-08-16 06:22 | Day surgery (SDC) | payer MEDICARE, MEDICAID ==
[~2020-08-16] VITALS: Ht 152.4 cm; Wt 110.2 kg
[~2020-08-16 06:22] MED LIST changes: -CALC-1139 PO; -DEXL60CA3 PO; -DULA0.75 SQ; -IRBE1TAB43 MT; -LEVO25TA7 PO; -P20 PO
[2020-08-16] MEDS ORDERED: IODIXANOL 320MG/ML 100 ML BOTTLE IV ONE (07:20)
[2020-08-16] MEDS ORDERED: IOHEXOL-300 100 ML BOTTLE ONE (07:20)
[2020-08-16] MEDS ORDERED: LIDOCAINE HCL 1% 20ML VIAL (Pyxis) INJ ONE (07:20)
[2020-08-16] MEDS ORDERED: ASPIRIN/SOD BICARB/CITRIC ACID 324MG TAB EFF ONE (08:05)
[2020-08-16] MEDS ORDERED: MIDAZOLAM HCL 5 MG/5 ML VIAL ONE (08:14)
[2020-08-16] MEDS ORDERED: FENTANYL CITRATE/PF 50MCG/ML 5ML VIAL ONE (08:14)
[2020-08-16] MEDS ORDERED: DEXL60CA3 PO (08:38)
[2020-08-16] MEDS ORDERED: CALC-1139 PO (08:38)
[2020-08-16] MEDS ORDERED: P20 PO (08:38)
[2020-08-16] MEDS ORDERED: LEVO25TA7 PO (08:38)
[2020-08-16] MEDS ORDERED: DULA0.75 SQ (08:38)
[2020-08-16] MEDS ORDERED: IRBE1TAB43 MT (08:41)
[2020-08-16] MEDS ORDERED: ATROPINE SULFATE 1MG/10ML SYR IV PRN (09:00)
[2020-08-16] MEDS ORDERED: MORPHINE SULFATE 2 MG/ML CPJ (NOT FOR IM USE) IV PRN (09:00)
[2020-08-16] MEDS ORDERED: ACETAMINOPHEN 325MG TABLET PO PRN (09:00)
[2020-08-16] MEDS ORDERED: MIDAZOLAM HCL 2 MG/2 ML VIAL ONE (09:03)
== END 2020-08-16 13:00 | disposition home or self-care (01) ==
LOC: CCL 06:22
PROVIDERS: ATTEND Specialist
DX: I25.10 Atherosclerotic heart disease of native coronary artery without angina pectoris (principal); I10 Essential (primary) hypertension; E11.9 Type 2 diabetes mellitus without complications; Z79.82 Long term (current) use of aspirin; Z79.4 Long term (current) use of insulin; Z79.899 Other long term (current) drug therapy; Z98.890 Other specified postprocedural states; Z88.8 Allergy status to other drugs, medicaments and biological substances
CPT/HCPCS: 93458; C1769; C1887; C1893; J1644; J2250; J3010; J3490; J7040; Q9967

== ENCOUNTER → 2021-04-24 | Outpatient (CLI) | payer MEDICARE, MEDICAID ==
[~2021-04-24] MED LIST changes: -ALBU6.7H11 IH; +ALBU6.7H15 IH; +CALC-1139 PO; +DEXL60CA3 PO; +DULA0.75 SQ; -DULO30CA2 PO; +IRBE1TAB43 MT; +LEVO25TA7 PO; +P20 PO; -SIMV-43 PO
== END | disposition home or self-care (01) ==
LOC: MAMMO 12:33
PROVIDERS: ATTEND Internal Medicine Pulmonary Disease
DX: Z12.31 Encounter for screening mammogram for malignant neoplasm of breast (principal)
CPT/HCPCS: 77067

== ENCOUNTER → 2021-07-19 | Outpatient (CLI) | payer MEDICARE, MEDICAID ==
[2021-07-19 09:00] LABS: BASOPHILS % 0.8 % (0.0-2.0); EOSINOPHILS % 0.6 % (0.0-5.0); HEMATOCRIT. 34.1 % (36.0-48.0); HEMOGLOBIN. 11.5 g/dL (12.0-16.0); LYMPHOCYTES % 16.1 % (20.0-50.0); MEAN CORPUSCULAR HEMOGLOBIN 31.2 pg (28.0-32.0); MEAN CORPUSCULAR VOLUME 92.8 fL (81.0-99.0); MEAN PLATELET VOLUME 8.7 fl (7.4-10.4); MONOCYTES % 4.9 % (2.0-8.0); NEUTROPHILS % 77.6 % (40.0-76.0); PLATELET 482 x1000/uL (130-400); RED BLOOD CELL COUNT 3.68 mill/uL (4.2-5.4)
[2021-07-19 09:11] LABS: PARTIAL THROMBOPLASTIN TIME 25.8 sec (23.4-31.0); PROTHROMBIN TIME 10.3 sec (9.6-11.0)
[2021-07-19 09:45] LABS: CHLORIDE 104 mEq/L (98-107)
[2021-07-19 09:54] LABS: T4 FREE 1.16 ng/dL (0.76-1.46)
[2021-07-19 10:44] LABS: CLARITY URINE CLEAR (CLEAR); COLOR URINE YELLOW (YELLOW); KETONES URINE NEGATIVE (NEGATIVE); LEUKOCYTE ESTERASE URINE NEGATIVE (NEGATIVE); NITRITE URINE NEGATIVE (NEGATIVE); OCCULT BLOOD URINE NEGATIVE (NEGATIVE); PH URINE 5.5 (4.5-8.0); PROTEIN URINE TRACE (NEGATIVE); SPECIFIC GRAVITY URINE 1.019 (1.005-1.030)
== END | disposition home or self-care (01) ==
LOC: LAB 08:26
PROVIDERS: ATTEND Internal Medicine Pulmonary Disease
DX: Z01.812 Encounter for preprocedural laboratory examination (principal); I10 Essential (primary) hypertension; E78.5 Hyperlipidemia, unspecified; E04.9 Nontoxic goiter, unspecified; J45.909 Unspecified asthma, uncomplicated; I48.0 Paroxysmal atrial fibrillation; Z79.899 Other long term (current) drug therapy
CPT/HCPCS: 36415; 80053; 81003; 84439; 84443; 84550; 85025

== ENCOUNTER → 2021-08-24 | Outpatient (CLI) | payer MEDICARE, MEDICAID ==
[2021-08-24 08:31] LABS: BASOPHILS % 0.9 % (0.0-2.0); EOSINOPHILS % 1.1 % (0.0-5.0); HEMATOCRIT. 35.1 % (36.0-48.0); HEMOGLOBIN. 11.9 g/dL (12.0-16.0); LYMPHOCYTES % 18.9 % (20.0-50.0); MEAN CORPUSCULAR HEMOGLOBIN 31.4 pg (28.0-32.0); MEAN CORPUSCULAR VOLUME 92.3 fL (81.0-99.0); MEAN PLATELET VOLUME 8.4 fl (7.4-10.4); MONOCYTES % 5.5 % (2.0-8.0); NEUTROPHILS % 73.6 % (40.0-76.0); PLATELET 433 x1000/uL (130-400); RED BLOOD CELL COUNT 3.81 mill/uL (4.2-5.4); RED CELL DISTRIBUTION WIDTH 15.5 % (11.6-14.6)
[2021-08-24 08:39] LABS: INR 0.9; PARTIAL THROMBOPLASTIN TIME 24.3 sec (23.4-31.0)
[2021-08-24 08:42] LABS: CHLORIDE 106 mEq/L (98-107)
== END | disposition home or self-care (01) ==
LOC: LAB 07:57
PROVIDERS: ATTEND Internal Medicine Pulmonary Disease
DX: Z01.812 Encounter for preprocedural laboratory examination (principal); I48.0 Paroxysmal atrial fibrillation; Z79.899 Other long term (current) drug therapy
CPT/HCPCS: 36415; 80053; 85025

== ENCOUNTER → 2021-08-30 | Outpatient (CLI) | payer MEDICARE, MEDICAID | END | disposition home or self-care (01) | LOC: RAD 08:01 | PROVIDERS: ATTEND Internal Medicine Pulmonary Disease | DX: Z01.818 Encounter for other preprocedural examination (principal); J98.11 Atelectasis; I70.0 Atherosclerosis of aorta; M25.562 Pain in left knee | CPT/HCPCS: 71046 ==

== ENCOUNTER 2022-06-07 13:58 | Inpatient (IN) | payer MEDICARE, MEDICAID ==
[~2022-06-07] VITALS: Ht 170.2 cm; Wt 105.4 kg
[~2022-06-07 13:58] MED LIST changes: -CETI10TA10 PO; +CETI10TA11 PO
[2022-06-07 15:20] LABS: EOSINOPHILS % 0.5 % (0.0-5.0); HEMOGLOBIN. 11.8 g/dL (12.0-16.0); LYMPHOCYTES % 16.9 % (20.0-50.0); MEAN CORPUSCULAR HEMOGLOBIN 30.9 pg (28.0-32.0); MEAN CORPUSCULAR VOLUME 94.1 fL (81.0-99.0); MONOCYTES % 5.5 % (2.0-8.0); NEUTROPHILS % 76.1 % (40.0-76.0); PLATELET 441 x1000/uL (130-400); RED BLOOD CELL COUNT 3.82 mill/uL (4.2-5.4); RED CELL DISTRIBUTION WIDTH 15.6 % (11.6-14.6)
[2022-06-07 15:53] LABS: CHLORIDE 105 mEq/L (98-107)
[2022-06-07] MEDS ORDERED: OSELTAMIVIR 75MG CAPSULE PO NR (16:45)
[2022-06-07] MEDS ORDERED: MAGNESIUM/ALUMINUM HYDROXIDE/SIMETHICONE 30ML UDC PO PRN (23:45)
[2022-06-07] MEDS ORDERED: ONDANSETRON HCL 4MG/2ML INJ IV PRN (23:45)
[2022-06-07] MEDS ORDERED: ACETAMINOPHEN 325MG TABLET PO PRN (23:45)
[2022-06-07] MEDS ORDERED: CLONIDINE 0.1MG TABLET PO PRN (23:45)
[2022-06-07] MEDS ORDERED: DEXTROSE 50% WATER 50ML SYRINGE IV PRN (23:45)
[2022-06-07] MEDS ORDERED: IPRATROPIUM/ALBUTEROL 0.5-3(2.5)MG/3ML NEB HHN PRN (23:45)
[2022-06-07] MEDS ORDERED: DIPHENHYDRAMINE 50MG/ML VIAL IV PRN (23:45)
[2022-06-07] MEDS ORDERED: PROMETHAZINE/DEXTROMETHORPHAN 6.25-15MG/5ML BOTTLE 120ML PO PRN (23:45)
[2022-06-08] MEDS: INSULIN GLARGINE 100 UNITS/ML SUBCUT SCH ×2 (01:59→20:46)
[2022-06-08 02:30] VITALS: BP 118/66
[2022-06-08] MEDS: ACETAMINOPHEN 325MG TABLET PO PRN ×2 (03:03→20:40)
[2022-06-08] MEDS: CLONAZEPAM 0.5MG TABLET PO SCH ×2 (03:03→20:41)
[2022-06-08] MEDS: IPRATROPIUM/ALBUTEROL 0.5-3(2.5)MG/3ML NEB HHN SCH ×4 (04:32→21:44)
[2022-06-08 04:52] VITALS: BP 116/61
[2022-06-08] MEDS: SODIUM CHLORIDE 0.9% INJ 3ML FLUSH IVF SCH ×3 (06:22→20:42)
[2022-06-08] MEDS: BLOOD SUGAR DIAGNOSTIC STRIP TEST SCH ×4 (07:40→20:41)
[2022-06-08 08:00] VITALS: BP 98/51
[2022-06-08] MEDS: BUDESONIDE 0.5MG/2ML NEB HHN SCH ×2 (08:01→21:44)
[2022-06-08] MEDS: CLOPIDOGREL 75MG TABLET PO SCH (08:13)
[2022-06-08] MEDS: CALCITRIOL 0.25MCG CAPSULE PO SCH (08:13)
[2022-06-08] MEDS: DULOXETINE HCL 30MG DR CAPSULE PO SCH (08:13)
[2022-06-08] MEDS: METFORMIN HCL 500MG TABLET PO SCH ×2 (08:13→17:47)
[2022-06-08] MEDS: OMEPRAZOLE 20MG CAPSULE EXTENDED RELEASE PO SCH ×2 (08:13→20:41)
[2022-06-08] MEDS: LEVOTHYROXINE SODIUM 125MCG TABLET PO SCH (08:14)
[2022-06-08] MEDS: INSULIN LISPRO 100 UNITS/ML SUBCUT SCH ×4 (08:14→20:41)
[2022-06-08] MEDS: ENOXAPARIN 30MG/0.3ML SYR SUBCUT SCH ×2 (08:15→20:40)
[2022-06-08] MEDS: EZETIMIBE 10MG TABLET PO SCH (08:18)
[2022-06-08] MEDS: OSELTAMIVIR 75MG CAPSULE PO SCH ×2 (10:45→20:41)
[2022-06-08 12:00] VITALS: BP 129/57
[2022-06-08 16:00] VITALS: BP 139/58
[2022-06-08 20:14] VITALS: BP 126/52
[2022-06-08] MEDS ORDERED: CLONAZEPAM 0.5MG TABLET PO SCH (21:00)
[2022-06-08] MEDS ORDERED: TRAM50TA3 MT (21:18)
[2022-06-08] MEDS ORDERED: TOPUD PO (21:18)
[2022-06-08] MEDS ORDERED: CALC0.5C10 MT (21:18)
[2022-06-08] MEDS ORDERED: CYAN50009 MT (21:18)
[2022-06-08] MEDS ORDERED: ATOR20TA65 MT (21:18)
[2022-06-08] MEDS ORDERED: INSU100I24 SQ (21:18)
[2022-06-08] MEDS ORDERED: LEVO112T7 MT (21:18)
[2022-06-08] MEDS ORDERED: BISA-81 MT (21:18)
[2022-06-09 00:01] VITALS: BP 125/52
[2022-06-09] MEDS: IPRATROPIUM/ALBUTEROL 0.5-3(2.5)MG/3ML NEB HHN SCH ×2 (01:52→08:24)
[2022-06-09 04:30] VITALS: BP 112/55
[2022-06-09] MEDS: BLOOD SUGAR DIAGNOSTIC STRIP TEST SCH ×2 (06:09→12:40)
[2022-06-09] MEDS: SODIUM CHLORIDE 0.9% INJ 3ML FLUSH IVF SCH ×2 (06:13→13:14)
[2022-06-09] MEDS: OMEPRAZOLE 20MG CAPSULE EXTENDED RELEASE PO SCH (06:13)
[2022-06-09] MEDS: LEVOTHYROXINE SODIUM 125MCG TABLET PO SCH (06:13)
[2022-06-09 08:00] VITALS: BP 128/61
[2022-06-09] MEDS: ENOXAPARIN 30MG/0.3ML SYR SUBCUT SCH (08:05)
[2022-06-09] MEDS: CALCITRIOL 0.25MCG CAPSULE PO SCH (08:05)
[2022-06-09] MEDS: CLOPIDOGREL 75MG TABLET PO SCH (08:05)
[2022-06-09] MEDS: EZETIMIBE 10MG TABLET PO SCH (08:05)
[2022-06-09] MEDS: METFORMIN HCL 500MG TABLET PO SCH (08:05)
[2022-06-09] MEDS: DULOXETINE HCL 30MG DR CAPSULE PO SCH (08:05)
[2022-06-09] MEDS: INSULIN LISPRO 100 UNITS/ML SUBCUT SCH ×2 (08:06→13:09)
[2022-06-09] MEDS: OSELTAMIVIR 75MG CAPSULE PO SCH (08:06)
[2022-06-09] MEDS: BUDESONIDE 0.5MG/2ML NEB HHN SCH (08:24)
[2022-06-09 12:00] VITALS: BP 136/72
[2022-06-09 14:09] VITALS: BP 136/72
== END 2022-06-09 15:00 | disposition home or self-care (01) | DRG 74 ==
LOC: ER 14:01 → MICUSO 20:06 → EDBEDREQ 20:09 → 7WST 06-08 02:25
PROVIDERS: ADMIT Internal Medicine; ATTEND Internal Medicine
DX: G90.8 Other disorders of autonomic nervous system (principal); I10 Essential (primary) hypertension; E78.00 Pure hypercholesterolemia, unspecified; E11.9 Type 2 diabetes mellitus without complications; Z20.822 Contact with and (suspected) exposure to COVID-19; J10.1 Influenza due to other identified influenza virus with other respiratory manifestations; I48.0 Paroxysmal atrial fibrillation; J44.9 Chronic obstructive pulmonary disease, unspecified; M19.90 Unspecified osteoarthritis, unspecified site; I25.10 Atherosclerotic heart disease of native coronary artery without angina pectoris; Z86.010 Personal history of colon polyps; Z90.49 Acquired absence of other specified parts of digestive tract; Z96.652 Presence of left artificial knee joint; Z79.899 Other long term (current) drug therapy
CPT/HCPCS: 36415; 71045; 80053; 82962; 83036; 83880; 84484; 85025; 87426; 87804; 93005; 99285; C9803; J1650; J1815; J7626

== ENCOUNTER 2022-09-27 07:07 | Emergency (ER) | payer MEDICARE, MEDICAID ==
[~2022-09-27] VITALS: Ht 165.1 cm; Wt 69.0 kg
[~2022-09-27 07:07] MED LIST changes: +ATOR20TA65 MT; +BISA-81 MT; -CALC-1139 PO; +CALC0.5C10 MT; +CYAN50009 MT; -GABA-529 PO; +INSU100I24 SQ; -INSU100I28 SQ; +LEVO112T7 MT; -LEVO25TA7 PO; -P20 PO; -POLY17PO3 PO; -POTA10CA42 PO; -SAXA5TAB PO; -TIOT18CA3 IH; +TOPUD PO; +TRAM50TA3 MT
[2022-09-27 07:10] VITALS: BP 147/73
[2022-09-27] MEDS ORDERED: NAPROXEN 375MG TABLET PO ONE (07:30)
== END 2022-09-27 08:39 | disposition home or self-care (01) ==
LOC: ER 07:07
DX: M25.511 Pain in right shoulder (principal); M25.531 Pain in right wrist; I10 Essential (primary) hypertension; E78.00 Pure hypercholesterolemia, unspecified; E11.9 Type 2 diabetes mellitus without complications; J44.9 Chronic obstructive pulmonary disease, unspecified; Z91.09 Other allergy status, other than to drugs and biological substances
CPT/HCPCS: 73030; 73110; 99284

== ENCOUNTER → 2025-06-07 | Outpatient (CLI) | payer MEDICARE, MEDICAID ==
[~2025-06-07] MED LIST changes: +ALBU18HF2 IH; -EZET10TA13 PO; +EZET10TA81 PO; +FLUT1BLS3 INH; +HYDR-4001 PO; +MAGN400T26 MT; +PREG100C MT
== END | disposition home or self-care (01) ==
LOC: RAD 12:27
PROVIDERS: ATTEND Internal Medicine Gastroenterology
DX: T18.2XXA Foreign body in stomach, initial encounter (principal); R14.0 Abdominal distension (gaseous); M47.816 Spondylosis without myelopathy or radiculopathy, lumbar region; W44.9XXA Unspecified foreign body entering into or through a natural orifice, initial encounter; Y93.89 Activity, other specified; Y92.89 Other specified places as the place of occurrence of the external cause; Y99.8 Other external cause status
CPT/HCPCS: 74018